=== PATIENT | male | born 1960 | race African-American/Black ===

== ENCOUNTER 2017-01-20 00:36 | Emergency (ER) | payer OTHER ==
[~2017-01-20] VITALS: Ht 162.6 cm; Wt 64.0 kg
[2017-01-20 04:40] VITALS: BP 133/98
[2017-01-20] MEDS ORDERED: FLUORESCEIN SODIUM 1MG/STRIP RIGHTEYE ONE (04:45)
== END 2017-01-20 05:41 | disposition home or self-care (01) ==
LOC: ER 00:36
DX: S05.01XA Injury of conjunctiva and corneal abrasion without foreign body, right eye, initial encounter (principal); X58.XXXA Exposure to other specified factors, initial encounter; Y93.89 Activity, other specified; Y92.89 Other specified places as the place of occurrence of the external cause; Y99.8 Other external cause status; Z98.890 Other specified postprocedural states
CPT/HCPCS: 99283

== ENCOUNTER 2018-06-19 21:49 | Emergency (ER) | payer OTHER ==
[~2018-06-19] VITALS: Ht 175.3 cm; Wt 79.0 kg
[2018-06-19] MEDS ORDERED: IBUPROFEN 600MG TABLET PO ONE (22:45)
[2018-06-19] MEDS ORDERED: TETANUS, DIPHTHERIA, PERTUSSIS VAC/PF 0.5ML (>7YR OLD) IM ONE (22:45)
[2018-06-19] MEDS ORDERED: BACITRACIN ZINC OINT UDPKT TOP ONE (22:45)
[2018-06-20 00:20] VITALS: BP 128/82
== END 2018-06-20 00:22 | disposition home or self-care (01) ==
LOC: ER 21:49
DX: S81.852A Open bite, left lower leg, initial encounter (principal); S81.851A Open bite, right lower leg, initial encounter; W54.0XXA Bitten by dog, initial encounter; Y93.89 Activity, other specified; Y92.488 Other paved roadways as the place of occurrence of the external cause
CPT/HCPCS: 73590; 90471; 90715; 99283